=== PATIENT | female | born 1950 | race Caucasian/White ===

== ENCOUNTER 2019-07-02 11:05 | Day surgery (SDC) | payer BC, SELFPAY ==
[2019-07-02 11:36] VITALS: BP 145/66; PULSE 69; RESP 16; TEMP 36.4; O2SAT 97
[2019-07-02] MEDS: ceFAZolin 1 GM/50 ML BAG IVPB (12:58)
[2019-07-02] MEDS: Lactated Ringers 1,000 ML 80 ML IV (12:58)
[2019-07-02] MEDS: Dexamethasone 4 MG/ML VIAL (13:38)
[2019-07-02] MEDS: Bupivacaine 0.5% Pres-Free 30 ML VIAL (13:38)
[2019-07-02] MEDS: Lidocaine 1% Pres-Free 5 ML VIAL (13:39)
--- NOTE | 2019-07-02 13:43 | PDOC.DSDIS_ITS ---
Discharge Plan Disposition Patient Disposition: HOME Condition: Good Discharge Details Reason For Visit: PLANTAR FASCITIS (R) Attending Provider: Danis Chandler Primary Care Provider: Gregory Saldana [place] Meds and New Rx's Prescriptions: New ibuprofen 600 mg tablet 600 mg PO Q6H PRN (Reason: post op pain) Qty: 40 RF: 1 hydrocodone-acetaminophen 5-325 mg tablet 1 tab PO Q6H PRN (Reason: moderate post op pain) Qty: 7 RF: 0 Continued calcium carbonate-vitamin D3 [Calcium 600 + D(3)] 600 mg(1,500mg) -200 unit Tablet 1 tab PO DAILY RF: 0 meloxicam [Mobic] 7.5 mg Tablet 7.5 mg PO DAILY RF: 0 raloxifene 60 mg Tablet 60 mg PO DAILY RF: 0 Discharge Instructions Activity:: Activity as Tolerated Remove Dressings/Wound Care:: Do Not Remove Shower/Bathe:: Cover Diet:: Normal Diet Discharge Orders Discharge Orders: Discharge Order (Routine); Ordered 07/02/19 Ordered By: Danis Chandler DS: Diagnosis Discharge Diagnosis (1) Plantar fasciitis of right foot: Start date: 07/02/19 Start time: 13:44 Status: Acute
--- NOTE | 2019-07-02 14:08 | ROE_ITS ---
DATE OF PROCEDURE: July 02, 2019 PREOPERATIVE DIAGNOSIS: Recalcitrant right plantar fasciitis. POSTOPERATIVE DIAGNOSIS: Same. PROCEDURE: Endoscopic plantar fasciotomy, right foot. SURGEON: Royce ThorpePPatrick. ANESTHESIA: General Anesthesia. ANESTHESIA PROVIDER: Chepe Fournier CRNA OPERATIVE INDICATIONS: 68-year-old female with severe right plantar fasciitis, which has not respond ed to nonsurgical treatments. She understands risks and complications to surgery pertaining to pain, scarring, infection, wound dehiscence, neurologic injury, persistent plantar fascial discomfort pote ntially requiring additional procedures. Informed consent has been obtained. No promises made to e final outcome of surgery. REPORT OF OPERATION: Fay was brought to the operative suite, placed in the supine position, where the right foot was prepped and draped in the usual sterile podiatric fashion. Anesthesia being obta ined, the right foot was exsanguinated; a well-padded ankle tourniquet inflated to 250 mmHg. A time- out was performed; all members of the surgical team were in agreement. Attention was directed to the medial aspect of the right heel. Approximately 50 cm in from the Achil les tendon and 25 cm up from the plantar surface of the foot, a 1 cm vertical incision was made. A c urved hemostat was inserted into the wound and the medial vestige of the plantar fascia was identifie d. The plantar fascial elevator was then inserted and a tunnel placed, exiting to the lateral side o f the heel. The obturator was placed, camera was inserted and the plantar fascia was immediately vis ible. A picture was obtained at this level. A probe was used, the fascia was identified, the medial portion was identified, hook blade was inserted and a medial plantar fasciotomy performed. The tria ngular blade was then used to release any additional adhesions. The digits were plantarflexed, the p lantar fascia and you could see the underlying muscle belly. A picture was obtained at thi s level as well. At this time we exited from the lateral approach, went in medially, inspected the f asciotomy, no additional teasing of fibers were necessary. The camera was removed. The cannula was copiously irrigated and then it was removed from the wound. The medial and lateral incisions were cl osed with simple interrupted suture #4-0 nylon. Four milligrams of dexamethasone phosphate was infus ed deeply into the wound. Gauze fluff compression dressings were applied. The tourniquet was releas ed; vascularity returned immediately to the foot. Fay left the OR with vital signs stable, vascul ar status intact. She will be followed by me in the office next week.
[2019-07-02 14:25] VITALS: BP 132/63; PULSE 66; RESP 16; TEMP 36.3; O2SAT 98
== END 2019-07-02 14:55 | disposition home or self-care (01) ==
PROVIDERS: PCP Neuromusculoskeletal Medicine & OMM; Visit Provider Podiatrist
PROC: (CPT 29893; principal; 2019-07-02 12:30)
DX: M72.2 Plantar fascial fibromatosis (principal)
CPT/HCPCS: 29893; J0690; J1100